=== PATIENT | male | born 1955 | race Caucasian/White ===

== ENCOUNTER → 2022-10-20 13:38 | Outpatient (BNVA) | payer BC, SELFPAY | PROVIDERS: PCP Internal Medicine; Visit Provider Hospitalist | DX: J44.9 Chronic obstructive pulmonary disease, unspecified (principal); J96.10 Chronic respiratory failure, unspecified whether with hypoxia or hypercapnia; J18.9 Pneumonia, unspecified organism | CPT/HCPCS: 94618 ==

== ENCOUNTER 2022-11-07 10:12 | Outpatient (REF) | payer BC, SELFPAY ==
--- NOTE | 2022-11-07 12:08 | PFT_ITS ---
INDICATION: Dyspnea. SPIROMETRY: FEV1 to FVC 46% with an FEV1 of 1.82 L, which is 60% of predicted and FVC of 3.97 L, which is 97% of predicted. Post bronchodilator, there was some improvement of the FVC by 22% and FEV1 by 13%. Maximum voluntary ventilation only 50% of predicted. LUNGS VOLUMES: Total lung capacity 98% of predicted with residual volume of 132% of predicted. DIFFUSION CAPACITY: DLCO of 66% of predicted. COMPARISONS: None. INTERPRETATION: There is an obstructive ventilatory defect consistent with moderate COPD. There was a significant response to bronchodilator was noted. The patient also has moderate decrease in the maximum voluntary ventilation secondary to deconditioning and also worsening dynamic inspiratory capacity. Lung volumes do demonstrate significant air trapping due to the COPD and also aflq-ny-bxjwubxq diffusion impairment, likely secondary to emphysema and/or other pulmonary vascular and pulmonary parenchymal condition should also be considered. Correction for hemoglobin also warranted MD ROCKY Damon/MODL / [id number]
== END 2022-11-07 10:13 | disposition home or self-care (01) ==
LOC: HO.RESP 10:12
PROVIDERS: PCP Internal Medicine; Visit Provider Hospitalist
DX: J18.9 Pneumonia, unspecified organism (principal)
CPT/HCPCS: 94060; 94727; 94729

== ENCOUNTER 2022-11-28 09:47 | Outpatient (REF) | payer BC, SELFPAY ==
--- NOTE | ~2022-11-28 | FL_ITS ---
EXAMINATION: FL BARIUM SWALLOW CLINICAL INFORMATION: Gastroesophageal reflux. COMPARISON: None TECHNIQUE: Barium swallow examination is performed using fluoroscopic evaluation in addition to multiple fluoroscopic spot views. The patient is imaged both upright and prone and using both thick and thin sulfate along with effervescent granules. Fluoroscopy time: 1.2 minutes DAP: 13 Gycm2 Images: 50 FINDINGS: There is laryngeal penetration. No definite aspiration. Esophageal motility is normal. No hernia, mass or stricture. Barium tablet passed freely into the stomach. There is gastroesophageal reflux. There is question mild distal esophagitis. FL/FL barium swallow IMPRESSION: Transient laryngeal penetration. No opal aspiration. Gastroesophageal reflux and question mild distal esophagitis.
--- NOTE | ~2022-11-28 | XR_ITS ---
EXAMINATION: XR CHEST CLINICAL INFORMATION: Pneumonia COMPARISON: None TECHNIQUE: 2 views of the chest were obtained. FINDINGS: The cardiac and mediastinal contours are normal. There is subsegmental atelectasis at the left lung base. The lungs are otherwise clear. There is no pleural effusion or pneumothorax. There are degenerative changes of the spine. XR/XR chest 2V IMPRESSION: Subsegmental atelectasis at the left lung base. No definite pneumonia.
== END 2022-11-28 09:48 | disposition home or self-care (01) ==
LOC: HO.XRAY 09:47
PROVIDERS: PCP Internal Medicine; Visit Provider Hospitalist
DX: K21.9 Gastro-esophageal reflux disease without esophagitis (principal); J18.9 Pneumonia, unspecified organism
CPT/HCPCS: 71046; 74220

== ENCOUNTER → 2022-12-03 10:20 | Outpatient (BNVA) | payer BC, SELFPAY | PROVIDERS: PCP Internal Medicine; Visit Provider Hospitalist | DX: J44.9 Chronic obstructive pulmonary disease, unspecified (principal); J96.10 Chronic respiratory failure, unspecified whether with hypoxia or hypercapnia; J18.9 Pneumonia, unspecified organism; K21.00 Gastro-esophageal reflux disease with esophagitis, without bleeding | CPT/HCPCS: 94618 ==

== ENCOUNTER → 2023-03-13 13:39 | Outpatient (BNVA) | payer BC, SELFPAY | PROVIDERS: PCP Internal Medicine; Visit Provider Nurse Practitioner Family | DX: J44.9 Chronic obstructive pulmonary disease, unspecified (principal); J96.10 Chronic respiratory failure, unspecified whether with hypoxia or hypercapnia; R06.00 Dyspnea, unspecified | CPT/HCPCS: 94618 ==

== ENCOUNTER → 2023-04-01 11:00 | Outpatient (BNVA) | payer BC, SELFPAY | PROVIDERS: PCP Internal Medicine; Visit Provider Hospitalist | DX: J44.1 Chronic obstructive pulmonary disease with (acute) exacerbation (principal); J96.10 Chronic respiratory failure, unspecified whether with hypoxia or hypercapnia; K21.00 Gastro-esophageal reflux disease with esophagitis, without bleeding | CPT/HCPCS: 96372; J2930 ==

== ENCOUNTER 2023-07-27 08:32 | Outpatient (AMB) | payer BC, SELFPAY ==
--- NOTE | 2023-07-27 08:33 | A.OFFVIS_ITS ---
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 Insurance Policy Issue Clerk: Insurance Policy Issue Clerk offered & declined Allergies No Known Allergies Allergy (Verified 07/27/23 08:42) Medication List - Last Reconciled 07/27/23 by Qiana Hickey, LIZZY albuterol sulfate 90 mcg/actuation 2 puffs inhalation Q4-6H PRN albuterol sulfate 2.5 mg (3 mL) inhalation Q4-6H PRN doxycycline monohydrate 100 mg PO BID 14 days duloxetine 60 mg PO DAILY escitalopram oxalate (Lexapro) 10 mg PO DAILY yydvwcewuov-eduhcjddg-uirvaqrx 200-62.5-25 mcg (Trelegy Ellipta) 1 inh inhalation DAILY 30 days lorazepam 0 mg PO metoprolol tartrate 50 mg PO BID nebulizers As directed omeprazole 40 mg PO DAILY Oxygen Home Use As directed pravastatin 40 mg PO DAILY quetiapine ER 200 mg PO BEDTIME HPI COPD HPI Details Noel is a pleasant 67 year old male, former smoker with 20 pack year history, quit 4-5 years ago, who is followed for COPD and chronic respiratory failure. Today he is here for an acute visit. He reports nonproductive cough with chills and wheezing that has developed over the last week. He denies any chest congestion, fevers or sick contacts. He reports intermittent substernal chest pain. He was prescribed suppressive therapy with azithromycin but it is not clear if he has been using. He has been using Trelegy regularly and it is unclear if he has been using his albuterol. He is in the process of being evalu ated by neurology as he has had increased forgetfulness. Of note, he has gained 22 lbs in the past 4 months which he attributes to decreased activity. He denies bilateral lower extremitiy edema or orthopnea. He states he was scheduled for an echocardiagram but can not say for certain if it was performed. [facility] Medical History (Updated 04/01/23 @ 23:39 by Arun Humphrey MD) GERD with esophagitis Pneumonia Chronic respiratory failure COPD (chronic obstructive pulmonary disease) Social History (Updated 07/27/23 @ 08:46 by Qiana Hickey LPN) Patient Tobacco Use Status: Former Tobacco user Years Smoked: 51 years Review of Systems Const Denies excessive sweating, Denies fever(s), Denies headache(s) and Denies night sweats Eyes Denies dry eyes, Denies irritation and Denies itchy eyes ENT Reports Normal hearing present, Denies headache(s), Denies nasal congestion, Denies nasal discharge, Denies post nasal drip and Denies sore throat Card Denies chest pain with activity, Denies leg edema, Denies orthopnea and Denies paroxysmal nocturnal dyspnea Resp Denies chest congestion, Denies excessive phlegm production, Denies pain on inspiration, Denies pain with cough and Denies stridor Musc Denies myalgias Neuro Reports Normal hearing present and Denies headache(s) Endo Denies excessive sweating Jeremias/Lymph Denies lymphadenopathy Aller/Immun Denies itchy eyes and Denies seasonal rhinorrhea Physical Exam Vital Signs: Last Vital Signs Pulse 75 07/27/23 08:34 BP 130/70 07/27/23 08:34 Pulse Ox 95 07/27/23 08:34 Oxygen Delivery Method Room Air 07/27/23 08:34 BMI result Body Mass Index 36.6 Const General: cooperative, no acute distress, well developed and alert Orientation/consciousness: patient oriented x3 HEENT Head: Yes normal to inspection, Yes normocephalic and Yes atraumatic Ears: hearing grossly normal bilaterally and external ears normal Eyes General: appearance normal, both eyes and all related structures Eyelids: Yes eyelids normal Sclerae: sclerae normal EOM: EOMs intact bilaterally Neck Neck: Yes normal visual inspection and Yes no lymphadenopathy Lymphatic: no lymphadenopathy noted Chest Chest palpation & inspection: normal inspection of the chest Resp Effort & Inspection: normal respiratory effort, able to speak in complete sentences, no audible wheezes, no cough, no stridor, not tachypneic, no tripod positioning and no use of accessory muscles Auscultation: wheezes expiratory wheezes and throughout and diminished lung sounds Cardio Jugular venous distension: no JVD Rate: regular rate Rhythm: regular rhythm Skin Other: warm, dry General skin exam: no rashes or lesions noted Neuro General: patient oriented x3 Cranial nerves: Yes Normal hearing present Cognition (Neuro): normal cognition Gait exam (Neuro): Normal gait present Extrem General: Yes normal to inspection, Yes capillary refill normal, Yes no clubbing, cyanosis or edema and Yes no pedal edema Psych Appearance: grossly normal and well kempt Speech and movement: Normal speech and movement present and Clear speech present Affect: normal affect Attitude: cooperative Thought process: Normal thought process present Thought content: Normal thought content present Insight: Good insight present (Psych) Judgement: Good judgement present (Psych) Assessment & Plan Assessment & Plan (1) COPD (chronic obstructive pulmonary disease): Code(s): J44.9 - Chronic obstructive pulmonary disease, unspecified Qualifiers: COPD type: COPD with acute exacerbation Qualified Code(s): J44.1 - Chronic obstructive pulmonary disease with (acute) exacerbation (2) Chronic respiratory failure: Code(s): J96.10 - Chronic respiratory failure, unspecified whether with hypoxia or hypercapnia (3) Dyspnea: Code(s): R06.00 - Dyspnea, unspecified Plan Unfortunately Noel is a poor historian but does present with progressively worsening dyspnea and wheezing. Will send in prednisone for wheezing and encouraged patient to use oxygen, as he did not have any with him today. On exam a murmur was auscultated and he states he was supposed to have an echocardiagram but is not sure why it was not performed. Will obtain records from cardiology an d if he has not had an echo, will enter order. At our last visit there was a CT chest ordered given patients smoking history, which he did not show for. I will reenter this order. All questions were answered and patient in agreement of plan. If symptoms do not improve, he is aware to call office or seek emergent care if they worsen. Otherwise he is to follow up with Dr. Humphrey for regularly scheduled appointment. Medications: New prednisone see taper instructions Take 4 pills daily for 5 days, then go down by 1 pill every 5 days; 10 mg PO DIRECTED 50 tabs 0RF Coding Level of Care Code Est Pt Level 4 (43359) Diagnoses Chronic obstructive pulmonary disease with acute exacerbation J44.1 COPD type: COPD with acute exacerbation Chronic respiratory failure J96.10 Dyspnea R06.00
[2023-07-27 08:34] VITALS: BP 130/70; PULSE 75; O2SAT 95; BMI 36.6
== END 2023-07-27 09:06 | disposition home or self-care (01) ==
LOC: HO.HPSW 08:32
PROVIDERS: PCP Internal Medicine; Visit Provider Nurse Practitioner Family
DX: J44.1 Chronic obstructive pulmonary disease with (acute) exacerbation (principal); J96.10 Chronic respiratory failure, unspecified whether with hypoxia or hypercapnia
CPT/HCPCS: 99214

== ENCOUNTER → 2023-07-27 08:32 | Outpatient (BNVA) | payer BC, SELFPAY | PROVIDERS: PCP Internal Medicine; Visit Provider Nurse Practitioner Family ==

== ENCOUNTER 2023-09-04 12:57 | Outpatient (REF) | payer BC, SELFPAY ==
--- NOTE | ~2023-09-04 | CT_ITS ---
EXAMINATION: CT CHEST WITHOUT CONTRAST CLINICAL INFORMATION: History of nicotine dependence. COMPARISON: Chest radiographs dated 11/28/2022. TECHNIQUE: Multidetector volumetric CT imaging of the chest was done. Axial MIP volume rendering provided. Sagittal and coronal reformatted images were obtained. This CT examination was performed using dose optimization techniques as appropriate, variously including the following: *Automated exposure control *Adjustment of mA and/or kV according to patient size (this includes techniques or standardized protocols for targeted exams where dose is matched to indication/reason for exam; i.e. extremities or head) *Use of iterative reconstruction technique DLP: 2:15 mGy-cm FINDINGS: TECHNICIAN ASSISTANT: The lungs are symmetrically well-expanded and grossly clear. There is mild elevation of the right hemidiaphragm. LUNGS: The lungs are clear with no evidence of inflammation or nodules. There is mild bibasilar linear scar/subsegmental atelectasis, without associated focal airway obstruction. There are mild centrilobular emphysematous changes. There is mild focal bronchiectasis at the posterior bases. No generalized small airway thickening is seen. The central airways appear patent MEDIASTINUM: The mediastinum is normal. CORONARY ARTERY CALCIFICATION: Mild. PLEURA: There is no pleural effusion. No pleural mass or thickening. AXILLA: No lymphadenopathy. UPPER ABDOMEN: Unremarkable. OSSEOUS STRUCTURES: There is multi-level lower cervical and thoracic degenerative disc disease and spondylosis. No acute or aggressive osseous finding is noted. CT/CT chest wo IV con IMPRESSION: 1. No mass, nodule, infiltrate or groundglass opacity is seen. 2. There are mild centrilobular emphysematous changes. 3. There is multi-focal mild bibasilar linear scar/subsegmental atelectasis. There is some associated bronchiectasis, without focal airway obstruction. 4. No thoracic lymphadenopathy or pleural effusion is seen. 5. There are degenerative changes of the spine. Fleischner guidelines were followed.
== END 2023-09-04 12:58 | disposition home or self-care (01) ==
LOC: HO.CT 12:57
PROVIDERS: PCP Internal Medicine; Visit Provider Nurse Practitioner Family
DX: R06.00 Dyspnea, unspecified (principal); Z87.891 Personal history of nicotine dependence
CPT/HCPCS: 71250

== ENCOUNTER 2023-11-17 13:53 | Outpatient (AMB) | payer BC, SELFPAY ==
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
[2023-11-17 14:23] VITALS: BP 136/88; PULSE 77; RESP 17; O2SAT 93; BMI 37.3
== END 2023-11-17 14:55 | disposition home or self-care (01) ==
PROVIDERS: PCP Internal Medicine; Visit Provider Psychiatry & Neurology Neurology
DX: R41.89 Other symptoms and signs involving cognitive functions and awareness (principal)
CPT/HCPCS: 99204

== ENCOUNTER → 2023-11-17 13:53 | Outpatient (BNVA) | payer BC, SELFPAY | PROVIDERS: PCP Internal Medicine; Visit Provider Psychiatry & Neurology Neurology ==

== ENCOUNTER 2025-05-30 09:03 | Outpatient (AMB) | payer BC, SELFPAY ==
--- NOTE | 2025-05-30 09:09 | A.OFFVIS_ITS ---
Vital Signs 05/30/25 09:10 Height 5 ft 7 in Weight 229 lb 4.492 oz BMI 35.9 BP 120/74 Blood Pressure Location Lt brachial Position Sitting Pulse 90 Pulse Source Pulse Oximeter Pulse Oximetry (%) 92 Oxygen Delivery Method Nasal Cannula Oxygen Flow Rate 2 Intake Visit Reasons: copd Accompanied by: Self / Same As Patient Allergies No Known Allergies Allergy (Verified 05/30/25 09:13) HPI Comments Details: The patient is a 67-year-old gentleman with a known history of COPD who apparently developed sepsis and severe pneumonia back in the summer of 2021. The patient was admitted to [facility]. There he had a CT scan of the chest demonstrating extensive right-sided bilobar pneumonia. Primarily involving the upper lung zone. The patient ultimately also had a dilated esophagus with food stuff suggesting the possibility of aspiration. His cultures were positive for strep pneumo. The patient is treated effectively. He also has been on oxygen. He has been noticing that he is still more short of breath lately. worse with activity. Moderate in severity. He does have oxygen at home but he does not use it with activity. The patient also complains of cough. He has had wheezing, moderate in severity. Sometimes waking him up from sleep. His has had multiple inhalers, but not sure what he should be taking. 12/03/2022 the patient is here for pulmonary follow-up visit. Overall he is doing little better. She continues use the oxygen. although, he runs out of the oxygen quickly since he is on 3 L continuous. In the office we did do a 6 minute walk test and the patient did qualify for 3 L pulse. Therefore go ahead and send a revision order to his [employer] company, [facility] to provide him with B cylinders with a conserving valve. We also reviewed his barium swallow. The patient did have some laryngeal penetration and also evidence of reflux disease. We talked about the importance of making sure that he sleeps with the head of bed elevated. We talked about risers. He is going to invest in them. He also will be provided with a PPI. He should continue with reflux diet. He continues with the Trelegy inhaler. This has been affecting beneficial. Also, we did review his chest x-ray demonstrating some atelectasis at the left base. 04/01/2023 The patient is here for a sick visit. has been having worsening cough and wheezing. +sick contacts. He was seen last ween and placed on Abx and prednisone. He was a little better, but then worsened when he weaned down on the prednisone. Feeling more short of breath, he has been using his oxygen and respiratory therapy with transient response. On exam he has significant wheezin g. We did provide him 2x duoneb and solumedrol 125mg IM x 1. 05/30/2025 the patient is here for pulmonary follow-up visit. He had been the hospital recently at [facility] after having worsening respiratory symptoms. Apparently the patient developing a productive cough shortness of breath he went to urgent care and was diagnosed with pneumonia. He was treated in afternoon improve and he went to the hospital. There he had a repeat chest x-ray demonstrated some hazy opacity to the right hemithorax. In addition to that the patient did have a sputum culture positive for stenotrophomonas. He has been using Trelegy inhaler also has a nebulizer. He is now on oxygen 247. We did personally review his chest x-rays. In the meantime will going to go ahead and start him on Bactrim to treat the stenotrophomonas. Indeed is resistant to doxycycline. Levaquin is also another option although this is more side effect prone. He can continue with the nebulized therapy followed by the Acapella valve for CPT. Will request 1 from a local [employer] company. The patient will have PFTs and a repeat chest x-ray and follow up in through 3 months. If he has any issues prior to this he will call for further recommendations. [facility] Medical History (Updated 05/30/25 @ 20:26 by Arun Humphrey MD) Cognitive disorder FHx: cancer of prostate Obstructive sleep apnea of adult Bipolar disorder Anxiety Hyperlipidemia HTN (hypertension) Atrial fibrillation GERD with esophagitis Pneumonia Chronic respiratory failure COPD (chronic obstructive pulmonary disease) Surgical History H/O prostatectomy History of cataract surgery Social History Patient Tobacco Use Status: Former Tobacco user Years Smoked: 51 years Review of Systems Const Reports fatigue and Denies fever(s) Eyes Denies change in vision ENT Denies change in voice Card Denies chest pain, Reports dyspnea and Reports dyspnea on exertion Resp Reports chest congestion, Reports cough, Denies pain on inspiration, Denies pain with cough, Reports dyspnea, Reports dyspnea on exertion and Reports wheezing GI Reports dyspepsia and Reports heartburn Musc Reports no additional complaints and Denies numbness Skin/Breast Denies rash Neuro Denies numbness Endo Reports fatigue and Denies flushing Jeremias/Lymph Denies easy bleeding and Denies easy bruising Aller/Immun Reports wheezing Physical Exam Vital Signs: Last Vital Signs Pulse 90 05/30/25 09:10 BP 120/74 05/30/25 09:10 Pulse Ox 92 05/30/25 09:10 Oxygen Delivery Method Nasal Cannula 05/30/25 09:10 Oxygen Flow Rate 2 05/30/25 09:10 BMI result Body Mass Index 35.9 Const General: comfortable HEENT Head: Yes atraumatic Eyes General: appearance normal, both eyes and all related structures Neck Neck: Yes supple Chest Chest palpation & inspection: normal inspection of the chest Resp Effort & Inspection: normal respiratory effort Auscultation: rhonchi and diminished lung sounds Cardio Rate: regular rate Rhythm: regular rhythm Heart sounds: S1 normal heart sound present and S2 normal heart sound present GI Auscultation: normal bowel sounds Skin General skin exam: no rashes or lesions noted Extrem General: Yes clubbing and No cyanosis Results Reviewed Results Reviewed: personally reviewed with CXR with sided sided opacity Assessment & Plan Assessment & Plan (1) COPD (chronic obstructive pulmonary disease): Code(s): J44.9 - Chronic obstructive pulmonary disease, unspecified Category: Medical Qualifiers: COPD type: COPD with acute exacerbation Qualified Code(s): J44.1 - Chronic obstructive pulmonary disease with (acute) exacerbation (2) Chronic respiratory failure: Code(s): J96.10 - Chronic respiratory failure, unspecified whether with hypoxia or hypercapnia Category: Medical Qualifiers: Respiratory failure complication: hypoxia Qualified Code(s): J96.11 - Chronic respiratory failure with hypoxia (3) GERD with esophagitis: Code(s): K21.00 - Gastro-esophageal reflux disease with esophagitis, without bleeding Category: Medical Qualifiers: Esophagitis bleeding: without hemorrhage Qualified Code(s): K21.00 - Gastro-esophageal reflux disease with esophagitis, without bleeding Plan continue Trelegy 200mcg start Bactrim to treat stenotrophamonas HALIE as needed continue oxygen: conserving valve 3L/pulse for better portability outside of the home PPI reflux diet sleep with head of bed elevated PFT CXR F/U 2-3 months Orders: Orders XR chest 2V Today J44.1 - Chronic obstructive pulmonary disease with (acute) exacerbation PFT pulmonary function test Today J44.1 - Chronic obstructive pulmonary disease with (acute) exacerbation Medications: New sulfamethoxazole-trimethoprim 800-160 mg (Bactrim DS) 1 tab PO BID 60 tabs 1RF 30 days bboqtubsefp-qupixjgpt-cibvoyms 200-62.5-25 mcg (Trelegy Ellipta) 1 inh inhalation DAILY 60 ea 12RF 30 days Coding Level of Care Code New Pt Level 5 (63830) Diagnoses Chronic obstructive pulmonary disease with acute exacerbation J44.1 COPD type: COPD with acute exacerbation Chronic respiratory failure with hypoxia J96.11 Respiratory failure complication: hypoxia Gastroesophageal reflux disease with esophagitis without hemorrhage K21.00 Esophagitis bleeding: without hemorrhage Time Spent (min) 45
[2025-05-30 09:10] VITALS: BP 120/74; PULSE 90; O2SAT 92; BMI 35.9
--- OUTSIDE RECORDS SUMMARY | 2025-05-30 09:57 | XMS_ITS | Clinical Summary ---
Author Organization [address] Address [address] [place] [address] Phone Care Team Providers Care [employer] Name Role Phone Unavailable Primary Care Provider Unavailabl e Social History Tobacco Use Types Packs/Day Years Used Date Smoking Tobacco: Never Assessed Sex and Gender Information Value Date Recorded Sex Assigned at Not on file Legal Sex Male 1:23 PM EST Gender Identity Not on file Sexual Orientation Not on file Plan of Treatment Health Maintenance Due Date Last Done Comments DTaP,Tdap,and Td Vaccines (1 - Tdap) 12/15/1975 Pneumococcal Vaccine: 50+ Ye ars (1 of 1 - PCV) 2006 Zoster Vaccines (1 of 2) 2006 Abdominal Aortic Aneurysm (A AA) Screen 09/09/2022 Cholesterol Screening (Lipid Panel) 09/09/2022 Colorectal Cancer Screening: Colonoscopy 09/09/2022 Falls Risk Assessment 09/09/2022 Hepatitis C Screening 09/09/2022 Social Influencers of Health Screening 09/09/2022 COVID-19 Vaccine (1 - 2023-2 5 season) 2024 Depression Screening 10/12/2024 Influenza Vaccine (#1) 2025 RSV Immunization Adult Patie nts (1 - 1-dose 75+ series) 12/15/2031 HIB Vaccines Aged Out No longer eligi ble based on patient's age to complete this topic HPV Vaccines Aged Out No longer eligi ble based on patient's age to complete this topic Hepatitis A Vaccines Aged Out No long er eligible based on patient's age to complete this topic Hepatitis B Vaccines Aged Out No long er eligible based on patient's age to complete this topic IPV Vaccines Aged Out No longer eligi ble based on patient's age to complete this topic MMR Vaccines Aged Out No longer eligi ble based on patient's age to complete this topic Meningococcal ACWY Vaccine Aged Out N o longer eligible based on patient's age to complete this topic Meningococcal B Vaccine Aged Out No l onger eligible based on patient's age to complete this topic RSV Immunization Patients Un alcon 20 months Aged Out No longer eligible b ased on patient's age to complete this topic Varicella Vaccines Aged Out No longer eligible based on patient's age to complete this topic Insurance RUST
== END 2025-05-30 09:43 | disposition home or self-care (01) ==
PROVIDERS: PCP Internal Medicine; Visit Provider Hospitalist
DX: J44.1 Chronic obstructive pulmonary disease with (acute) exacerbation (principal); J96.11 Chronic respiratory failure with hypoxia; K21.00 Gastro-esophageal reflux disease with esophagitis, without bleeding
CPT/HCPCS: 99215